=== PATIENT | male | born 1930 | race Caucasian/White ===

== ENCOUNTER 2020-01-20 16:03 | Inpatient (IN) | payer OTHER ==
[~2020-01-20] VITALS: Ht 180.3 cm; Wt 66.2 kg
--- NOTE | 2020-01-20 16:03 | NUR ---
SOPHIE RA 39 FROM A [facility]ARE [facility] FOR LOW BP, PT TO BED 5, ENHANCED ISOLATION PRECAUTIONS OBSERVED, PLACED ON MONITOR, AWAITING MD MCKENZIE
--- NOTE | 2020-01-20 16:12 | NUR ---
CALLED [facility] FOR INFORMATION ON PATIENT. THEY WILL FAX OVER INFO.
[2020-01-20] MEDS ORDERED: ONDANSETRON HCL/PF 4 MG/2 ML VIAL IVP ONE (16:30)
[2020-01-20] MEDS ORDERED: IV NS 0.9% 1,000 ML BAG IV ONE ×3 (16:30→18:30)
[2020-01-20] MEDS ORDERED: ONDANSETRON HCL/PF 4 MG/2 ML VIAL ONE (16:45)
[2020-01-20] MEDS ORDERED: TAMS-12 PO (16:47)
[2020-01-20] MEDS ORDERED: SODI1TAB66 PO (16:47)
[2020-01-20] MEDS ORDERED: ATOR40TA PO (16:47)
[2020-01-20] MEDS ORDERED: SENN-261 PO (16:47)
[2020-01-20] MEDS ORDERED: BISO5TAB20 PO (16:47)
[2020-01-20] MEDS ORDERED: FAMO20TA8 PO (16:47)
[2020-01-20] MEDS ORDERED: LISI2.5T2 PO (16:47)
[2020-01-20 16:54] LABS: BASOPHILS % (AUTO) 0.1 % (0.0-2.0); HEMATOCRIT 48 % (39-51); HEMOGLOBIN 14.7 g/dL (13.5-17.5); LYMPHOCYTES # (AUTO) 0.6 /CMM (0.8-4.8); LYMPHOCYTES % (AUTO) 1.3 % (20.0-44.0); MEAN CORPUSCULAR HGB CONC 31 g/dl (31.0-36.0); MEAN CORPUSCULAR VOLUME 104 fL (80-96); MONOCYTES # (AUTO) 2.5 /CMM (0.1-1.30); MONOCYTES % (AUTO) 5.8 % (2.0-12.0); NEUTROPHILS # (AUTO) 40.1 /CMM (1.8-8.9); NEUTROPHILS % (AUTO) 92.8 % (43.0-81.0); PLATELET COUNT (AUTO) 221 /CMM (150-450); RED BLOOD CELL COUNT(AUTO) 4.59 MIL/uL (4.5-6.0)
[2020-01-20] MEDS ORDERED: DEXTROSE 50%-WATER 50 ML DISP.SYRIN ONE (16:54)
[2020-01-20] MEDS ORDERED: ALBUMIN 25% 50 ML IV ONE (16:54)
[2020-01-20] MEDS ORDERED: DEXTROSE 50%-WATER 50 ML DISP.SYRIN IV ONE (17:00)
[2020-01-20] MEDS ORDERED: ALBUMIN 25% 12.5 GM/50 ML BOTTLE IV ONE (17:00)
--- NOTE | 2020-01-20 17:00 | NUR ---
COVID SWAB + FLU SWAB SENT
[2020-01-20 17:12] LABS: APPEARANCE,URINE TURBID (CLEAR); CALCIUM, SERUM 9.6 mg/dL (8.5-10.1); CARBON DIOXIDE 15 mmol/L (21-32); CHLORIDE 106 mmol/L (98-107); COLOR,URINE YELLOW (YELLOW); CREATININE 2.9 mg/dL (0.6-1.3); GLUCOSE 85 mg/dL (74-106); PH,URINE 7.5 (5.0-8.0); POTASSIUM 4.4 mmol/L (3.5-5.1); PROTEIN,URINE 3+ mg/dl (NEGATIVE); SODIUM SERUM 143 mmol/L (136-145); UGLUCOSE NEGATIVE (NEGATIVE); UREA NITROGEN, BLOOD 27 mg/dL (7-18)
[2020-01-20 17:13] LABS: BILIRUBIN,URINE SMALL (NEGATIVE); BLOOD, URINE 3+ Ery/uL (NEGATIVE); KETONES,URINE TRACE (NEGATIVE); LEUKOCYTE ESTERASE ,URINE 3+ (NEGATIVE); NITRITE, URINE NEGATIVE (NEGATIVE); UROBILINOGEN,URINE 0.2 EU/dL (0.2)
[2020-01-20 17:16] LABS: WHITE BLOOD COUNT (AUTO) 43.2 K/uL (4.3-11.0)
[2020-01-20 17:23] LABS: ALANINE AMINOTRANSFERASE 56 U/L (12-78); ALBUMIN 2.7 g/dL (3.4-5.0); ALKALINE PHOSPHATASE 110 U/L (46-116); ASPARTATE AMINOTRANSFERASE 165 U/L (15-37); BILIRUBIN,TOTAL 0.6 mg/dL (0.2-1.0); TOTAL PROTEIN, SERUM 6.7 g/dL (6.4-8.2)
[2020-01-20 17:28] LABS: WBC,URINE 51-80 /HPF (0-3)
[2020-01-20 17:29] LABS: BACTERIA,URINE Many /HPF (None Seen); SQUAMOUS EPITHELIAL CELL,UR Rare /HPF (None Seen)
[2020-01-20] MEDS ORDERED: MEROPENEM 1 G in IV NS 0.9% 100 ML IV ONE (17:30)
[2020-01-20] MEDS ORDERED: AZITHROMYCIN 500 MG in IV D5W 250 ML IV ONE (18:00)
[2020-01-20 18:02] LABS: ABG OXYGEN SATURATION 97.8 % (92.0-98.5); ABG PCO2 22.1 mmHg (35.0-45.0); ABG PH 7.316 (7.350-7.450); ABG PO2 130.7 mmHg (75.0-100.0); AaDO2 200.9 mmHg; COHb 0.5 % (0.5-1.5); MetHb 0.4 % (0.0-1.5); O2Hb 96.9 % (94.0-97.0); SITE, ABG Right Radial; VENT MODE, BG SM 6L
--- NOTE | 2020-01-20 18:14 | NUR ---
PAGED [facility].
--- NOTE | 2020-01-20 18:19 | NUR ---
Rolando cavazos in [facility] - 01/20/20 at 1819 by KINGSLEY JANA ELMORE
--- NOTE | 2020-01-20 18:29 | NUR ---
CALLED NURSING SUP FOR ICU BED.
[2020-01-20 18:31] LABS: BAND % (MANUAL) 11 % (0.0-5.0); LYMPHOCYTES % (MANUAL) 5 % (16-48); MONOCYTES % (MANUAL) 4 % (0-11.0); NEUTROPHILS % (MANUAL) 80 (42-76)
[2020-01-20] MEDS ORDERED: HYDROCODONE/APAP 5/325MG 1 EACH TABLET PO PRN (19:00)
[2020-01-20] MEDS ORDERED: ONDANSETRON HCL/PF 4 MG/2 ML VIAL IVP PRN (19:00)
[2020-01-20] MEDS ORDERED: NOREPINEPHRINE 8 MG in IV NS 0.9% 250 ML IV ONE (19:00)
[2020-01-20] MEDS ORDERED: Z GUARD REMEDY 2 OZ OINT TP PRN (19:00)
[2020-01-20] MEDS ORDERED: MAG HYDROX/AL HYDROX/SIMETH 30 ML UDC PO PRN (19:00)
[2020-01-20] MEDS ORDERED: ACETAMINOPHEN 325 MG TABLET PO PRN (19:00)
[2020-01-20] MEDS ORDERED: MAGNESIUM HYDROXIDE 30 ML UDC PO PRN (19:00)
--- NOTE | 2020-01-20 19:44 | NUR ---
ICU 257
--- NOTE | 2020-01-20 19:55 | NUR ---
report given to ashley hurley for yaw pt will be transported to icu
[2020-01-20 20:05] VITALS: BP 112/69
--- NOTE | 2020-01-20 20:05 | NUR ---
vocational horticulture instructor notes Admitted a 89 y/o male non verbal unable to make needs known ,a/oxo admitting diagnosis of sepsis uti . pts is r/o covid 19 wbc of 43.2lactic acid of 11.8 down to 6.7 , procal 188.60 trop -0.206 .pt on sr 87 ,0n 6 liters of o2 via mask .pts is mouth breather ,no sob no distress noted , received pts with levo drip at 0.5mcg/kg/min.with ivf of ns at 100cc/hr infusing well .counter supervisor made aware of piccline insertion ,f/c intact and patent draining with yellow cloudy /sidement urine, pts is npo status as ordered , admission routine care rendered mai needs attended too call light within reach kept pts clean dry and comfortable.v/s stable temp 95.5 ,pts received on [place] for hypothermia ,will continue to monitor pts .
--- NOTE | 2020-01-20 20:17 | NUR ---
PT TRANSPORTED TO ICU
[2020-01-20] MEDS: IV NS 0.9% 1,000 ML IV PRN (20:25)
[2020-01-20 21:00] VITALS: BP 100/68
[2020-01-20 22:00] VITALS: BP 101/61
[2020-01-20] MEDS ORDERED: NOREPINEPHRINE 4 MG/4 ML AMPUL IV ONE (22:26)
[2020-01-20 23:00] VITALS: BP 126/60
[2020-01-20] MEDS: NOREPINEPHRINE 8 MG in IV NS 0.9% 242 ML IV PRN (23:04)
[2020-01-21] VITALS (74 sets, daily range): BP systolic 63–149; BP diastolic 33–76
[2020-01-21] MEDS: ACETAMINOPHEN 650 MG/SUPP.RECT RC PRN (02:55)
[2020-01-21] MEDS ORDERED: NOREPINEPHRINE 4 MG/4 ML AMPUL IV ONE (02:56)
[2020-01-21] MEDS: NOREPINEPHRINE 8 MG in IV NS 0.9% 242 ML IV PRN ×3 (03:17→13:06)
[2020-01-21 05:09] LABS: BASOPHILS % (AUTO) 0.1 % (0.0-2.0); HEMATOCRIT 43 % (39-51); HEMOGLOBIN 14.3 g/dL (13.5-17.5); LYMPHOCYTES # (AUTO) 0.3 /CMM (0.8-4.8); LYMPHOCYTES % (AUTO) 0.8 % (20.0-44.0); MEAN CORPUSCULAR HGB CONC 33 g/dl (31.0-36.0); MEAN CORPUSCULAR VOLUME 98 fL (80-96); MONOCYTES # (AUTO) 1.5 /CMM (0.1-1.30); MONOCYTES % (AUTO) 4.6 % (2.0-12.0); NEUTROPHILS # (AUTO) 30.7 /CMM (1.8-8.9); NEUTROPHILS % (AUTO) 94.5 % (43.0-81.0); PLATELET COUNT (AUTO) 261 /CMM (150-450); RED BLOOD CELL COUNT(AUTO) 4.43 MIL/uL (4.5-6.0)
[2020-01-21 05:20] LABS: WHITE BLOOD COUNT (AUTO) 32.5 K/uL (4.3-11.0)
[2020-01-21 05:42] LABS: CALCIUM, SERUM 8.2 mg/dL (8.5-10.1); CARBON DIOXIDE 20 mmol/L (21-32); CHLORIDE 111 mmol/L (98-107); CREATININE 3.1 mg/dL (0.6-1.3); GLUCOSE 87 mg/dL (74-106); MAGNESIUM 1.5 mg/dL (1.8-2.4); PHOSPHORUS 3.9 mg/dL (2.5-4.9); POTASSIUM 3.9 mmol/L (3.5-5.1); SODIUM SERUM 145 mmol/L (136-145); UREA NITROGEN, BLOOD 34 mg/dL (7-18)
[2020-01-21 05:43] LABS: BAND % (MANUAL) 20 % (0.0-5.0); LYMPHOCYTES % (MANUAL) 2 % (16-48); MONOCYTES % (MANUAL) 8 % (0-11.0); NEUTROPHILS % (MANUAL) 70 (42-76)
[2020-01-21] MEDS: MEROPENEM 500 MG in IV NS 0.9% 50 ML IV SCH ×2 (05:46→17:16)
[2020-01-21] MEDS: IV NS 0.9% 1,000 ML IV PRN ×2 (05:55→17:37)
--- NOTE | 2020-01-21 06:36 | NUR ---
GOAT FARMER NOTES pts remains on levo drip at 0.5 mcg /kg/min ORDERED .NO SOB NO DISTRESS NOTED .NPO STATUS ALL DUE MEDS GIVEN ORDERED , IVF NS AT 100CCHR INFUSING WELL .WILL ENDORSE TO RN GHISLAINE DECKER FOR CONTINUITY OF CARE. .LATEST TEMP IS 99.6 ,WBC TRENDING DOWN TO 32.5 MD MADE AWARE WILL CONTINUE TO MONITOR PTS.
--- NOTE | 2020-01-21 07:00 | NUR ---
RN NOTES RECEIVED PT ON BED, ALERT/ DOES NOT FOLLOW COMMAND, RESTLESS AT TIMES , PULLING ON LEONARD. WRIST SOFT RESTRAINS , ON TELE SR HR IN 70'S , MONTANO DRINING TO GRAVITY WITH YELLOW CLOUDY URINE, PT IS NPO AT THIS TIME, R FA AND L AC AND L FOREARM IV SITES CLEAN, DRY AND INTACT, NS AT 100CC/HR AND LEVO AT 0.5MCG/KG/MIN RUNNING AT THIS TIME, SR UP x3, CALL LIGHT WITHIN EASY REACH, BED LOCKED AND IN LOWEST POSITION, CONTINUE TO MONITOR .
[2020-01-21] MEDS: HYDROCORTISONE SOD SUCCINATE 100 MG/2 ML VIAL IV SCH ×3 (08:37→16:48)
[2020-01-21] MEDS: Magnesium 1GM/D5W 100ML PREMIX 100 ML IV SCH ×2 (08:37→09:58)
--- NOTE | 2020-01-21 09:00 | NUR ---
RN NOTES NGT INSERTED PER MD ORDER, PLACEMENT VERIFIED BY TWO RN'S , NGT CONNECTED TO LIS , 550 CC DARK GREENISH GASTRIC DRAINING DRAINED . CONTINUE TO MONITOR.
[2020-01-21 09:48] LABS: THYROID STIMULATING HORMONE 4.503 uIU/mL (0.358-3.74)
--- NOTE | 2020-01-21 10:00 | NUR ---
RN NOTES DR SCHWARZ AND ELVIA NOTIFED REGARDING TROPONIN 0.402, NO NEW ORDER RECEIVED , CONTINUE TO MONITOR .
[2020-01-21 11:43] LABS: ABG BASE EXCESS -7.3 mmol/L; ABG OXYGEN SATURATION 98.1 % (92.0-98.5); ABG PH 7.419 (7.350-7.450); ABG PO2 118.5 mmHg (75.0-100.0); COHb 0.5 % (0.5-1.5); MetHb 0.3 % (0.0-1.5); O2Hb 97.3 % (94.0-97.0); SITE, ABG Right Radial; VENT MODE, BG SIMPLE MASK
--- NOTE | 2020-01-21 12:00 | NUR ---
RN NOTES PER AVTAR WARNER , BOARDING CARE WASHING MACHINE OPERATOR , PT HAS NO FAMILY MEMBERS. DR GAN NOTIFED ,EMERGENCY PICC LINE PLACEMENT CONSENT ORDER RECEIVED FORM DR GAN.
[2020-01-21] MEDS ORDERED: NOREPINEPHRINE 32 MG in IV NS 0.9% 218 ML IV PRN (13:30)
--- NOTE | 2020-01-21 14:00 | NUR ---
RN NOTES R UPPER ARM PICC LINE INSERTED BY PICC LINE NURSE .
[2020-01-21] MEDS ORDERED: AZITHROMYCIN 500 MG in IV D5W 250 ML IV SCH (18:00)
[2020-01-21] MEDS ORDERED: ZITHROMAX 500 MG/250 ML D5W IV SCH ×2 (18:00)
--- NOTE | 2020-01-21 18:00 | NUR ---
RN NOTES LEVO AT .1 MCG/KG/MIN RUNNING VIA R UPPER ARM PICC LINE , SMALL AMOUNT OF BLOODY DRAINING NOTED AT THE PICC LINE SITE , NEW DRESSING APPLIED , PT STILL ON 6 L O2 FACE MASK , O2 SAT WNL , NGT TO LIS , NO DISTRESS NOTED, SR UP x3, CALL LIGHT WITHIN EASY REACH, BED LOCKED AND IN LOWEST POSITION , WILL ENDORSE TO FIELD COLLECTOR NURSE FOR CONTINUITY OF CARE .
--- NOTE | 2020-01-21 20:00 | NUR ---
Received patient awake non verbal non interactive.Respiration even and unlabored.With O2 6L simple mask.SR per monitor with Levophed gtt 0.1 mcg/kg/min infusing via DRAKE PICC Line.Site intact.Will titrate accordingly.NPO status.NGT to LIWS.Patent and draining greenish output. FC to gravity.Turned and repositioned offloading pressure points.No distress noted.Continue monitoring.
[2020-01-22] VITALS (72 sets, daily range): BP systolic 98–130; BP diastolic 47–75
[2020-01-22 04:25] LABS: EOSINOPHILS % (AUTO) 0.4 % (0.0-6.0); HEMATOCRIT 39 % (39-51); HEMOGLOBIN 12.6 g/dL (13.5-17.5); LYMPHOCYTES # (AUTO) 0.3 /CMM (0.8-4.8); LYMPHOCYTES % (AUTO) 1.3 % (20.0-44.0); MEAN CORPUSCULAR HGB CONC 33 g/dl (31.0-36.0); MEAN CORPUSCULAR VOLUME 97 fL (80-96); MONOCYTES # (AUTO) 0.8 /CMM (0.1-1.30); MONOCYTES % (AUTO) 3.9 % (2.0-12.0); NEUTROPHILS # (AUTO) 20.1 /CMM (1.8-8.9); NEUTROPHILS % (AUTO) 94.4 % (43.0-81.0); PLATELET COUNT (AUTO) 194 /CMM (150-450); RED BLOOD CELL COUNT(AUTO) 3.97 MIL/uL (4.5-6.0); WHITE BLOOD COUNT (AUTO) 21.3 K/uL (4.3-11.0)
[2020-01-22] MEDS: IV NS 0.9% 1,000 ML IV PRN ×2 (04:40→15:03)
[2020-01-22 04:45] LABS: ALANINE AMINOTRANSFERASE 103 U/L (12-78); ALBUMIN 1.9 g/dL (3.4-5.0); ALKALINE PHOSPHATASE 74 U/L (46-116); ASPARTATE AMINOTRANSFERASE 174 U/L (15-37); BILIRUBIN,TOTAL 0.3 mg/dL (0.2-1.0); CALCIUM, SERUM 7.7 mg/dL (8.5-10.1); CARBON DIOXIDE 20 mmol/L (21-32); CHLORIDE 112 mmol/L (98-107); CREATININE 3.1 mg/dL (0.6-1.3); GLUCOSE 115 mg/dL (74-106); MAGNESIUM 2.3 mg/dL (1.8-2.4); PHOSPHORUS 4.9 mg/dL (2.5-4.9); POTASSIUM 4.1 mmol/L (3.5-5.1); SODIUM SERUM 146 mmol/L (136-145); TOTAL PROTEIN, SERUM 5.2 g/dL (6.4-8.2); UREA NITROGEN, BLOOD 49 mg/dL (7-18)
[2020-01-22] MEDS: MEROPENEM 500 MG in IV NS 0.9% 50 ML IV SCH ×2 (05:12→18:07)
--- NOTE | 2020-01-22 06:00 | NUR ---
Patient resting no significant change noted during the shift.VSS.SR.Still on Levophed gtt infusing at 0.1 mcg and IV NS.Tolerating 6L simple mask sat 99%-100%.AM care done.No BM noted.NGT to LWIS. Turned and repositioned.No distress noted.
--- NOTE | 2020-01-22 07:30 | NUR ---
TUMBLE TAILSTOCK TURRET LATHE OPERATOR INITIAL NOTE RECEIVED PATIENT AWAKE, NON-VERBAL, RESPONDS TO NAME. NO S/S OF PAIN OR DISCOMFORT. NO DISTRESS NOTED. ON 6LPM O2 VIA MASK. ON TELE MONITOR SR. WITH LEFT NARE NGT PATENT, INTACT, IN PLACE ON LIS WITH BROWN OUTPUT. F/C PATENT AND DRAINING BY GRAVITY. WITH DRAKE PICC LINE PATENT AND INTACT, LEVO AT 0.1 MG/KG/MIN AND NS AT 100 ML/HR. BILATERAL SOFT RESTRAINTS IN PLACE, CIRCULATION CHECKED. HOB ELEVATED. TURNED AND REPOSITIONED. SIDE RAILS UP AND LOCKED. BED KEPT AT LOWEST POSITION. CALL LIGHT KEPT WITHIN EASY REACH. WILL CONTINUE TO MONITOR.
[2020-01-22 08:16] LABS: ABG BASE EXCESS -4.5 mmol/L; ABG OXYGEN SATURATION 96.7 % (92.0-98.5); ABG PCO2 30.8 mmHg (35.0-45.0); ABG PH 7.409 (7.350-7.450); AaDO2 228.9 mmHg; COHb 0.4 % (0.5-1.5); MetHb 0.4 % (0.0-1.5); O2Hb 95.9 % (94.0-97.0); SITE, ABG Right Radial
[2020-01-22] MEDS: HYDROCORTISONE SOD SUCCINATE 100 MG/2 ML VIAL IV SCH (08:28)
--- NOTE | 2020-01-22 09:00 | NUR ---
CONSULTING TECHNICAL MANAGER NOTE FOLLOWED UP WITH [employer] REGARDING POLST, PER [employer] DRIER TRANSFER CAR OPERATOR CALL IN AM WHEN MEDICAL RECORDS OPEN
--- NOTE | 2020-01-22 18:43 | NUR ---
EMERGENCY ROOM TECHNICIAN CLOSING NOTE ALL DUE MEDS GIVEN. NO DISTRESS NOTED. ON RA AT 98% SPO2. ON TELE MONITOR SR. SKIN WARM AND DRY TO TOUCH. KEPT CLEAN AND DRY. TURNED AND REPOSITIONED Q2 AND PRN. LEVO OFF SINCE 729, NS AT 100ML/HR RUNNING. LEFT NGT PATENT, INTACT AND IN PLACE ON LIS. F/C DRAINING BY GRAVITY. HOB ELVATED. SIDE RAILS UP AND LOCKED. BED KEPT AT LOWEST POSITION. WILL ENDORSE CONTINUITY OF CARE TO PM NURSE.
[2020-01-23] VITALS (42 sets, daily range): BP systolic 111–134; BP diastolic 49–75
[2020-01-23] MEDS: IV NS 0.9% 1,000 ML IV PRN (01:19)
[2020-01-23] MEDS: ACETAMINOPHEN 650 MG/SUPP.RECT RC PRN (01:30)
[2020-01-23] MEDS: MEROPENEM 500 MG in IV NS 0.9% 50 ML IV SCH ×2 (05:46→18:54)
--- NOTE | 2020-01-23 07:30 | NUR ---
TUNNEL ELASTIC OPERATOR ZIGZAG INITIAL NOTE RECEIVED PATIENT AWAKE, NON-VERBAL, RESPONDS TO NAME. NO S/S OF PAIN OR DISCOMFORT. NO DISTRESS NOTED. ON 3LPM O2 VIA NC. ON TELE MONITOR SR. WITH LEFT NARE NGT PATENT, INTACT, IN PLACE ON LIS WITH BROWN OUTPUT. F/C PATENT AND DRAINING BY GRAVITY. WITH DRAKE PICC LINE PATENT AND INTACT AND NS AT 100 ML/HR. HOB ELEVATED. TURNED AND REPOSITIONED. SIDE RAILS UP AND LOCKED. BED KEPT AT LOWEST POSITION. CALL LIGHT KEPT WITHIN EASY REACH. WILL CONTINUE TO MONITOR.
[2020-01-23 08:39] LABS: BASOPHILS # (AUTO) 0.1 /CMM (0.0-0.2); BASOPHILS % (AUTO) 0.3 % (0.0-2.0); HEMATOCRIT 41 % (39-51); HEMOGLOBIN 13.2 g/dL (13.5-17.5); LYMPHOCYTES # (AUTO) 0.4 /CMM (0.8-4.8); LYMPHOCYTES % (AUTO) 2.1 % (20.0-44.0); MEAN CORPUSCULAR HGB CONC 32 g/dl (31.0-36.0); MEAN CORPUSCULAR VOLUME 98 fL (80-96); MONOCYTES # (AUTO) 0.7 /CMM (0.1-1.30); NEUTROPHILS # (AUTO) 15.5 /CMM (1.8-8.9); NEUTROPHILS % (AUTO) 93.6 % (43.0-81.0); PLATELET COUNT (AUTO) 154 /CMM (150-450); RED BLOOD CELL COUNT(AUTO) 4.17 MIL/uL (4.5-6.0); WHITE BLOOD COUNT (AUTO) 16.6 K/uL (4.3-11.0)
[2020-01-23 08:42] LABS: CALCIUM, SERUM 7.7 mg/dL (8.5-10.1); CARBON DIOXIDE 21 mmol/L (21-32); CHLORIDE 118 mmol/L (98-107); CREATININE 2.2 mg/dL (0.6-1.3); GLUCOSE 85 mg/dL (74-106); POTASSIUM 3.7 mmol/L (3.5-5.1); SODIUM SERUM 152 mmol/L (136-145); UREA NITROGEN, BLOOD 56 mg/dL (7-18)
--- NOTE | 2020-01-23 09:00 | NUR ---
WOUND CARE CONSULT: PT PRESENTS WITH RASH TO PENIS, PERINEUM AND SCROTAL AREAS AND BLANCHABLE REDNESS NOTED TO SACRAL AREA, PRESENT ON ADMISSION. PT IS INCONTINENT OF STOOL. RECOMMENDATIONS MADE FOR SKIN PROTECTION. DISCUSSED WITH NURSING STAFF. FIRST STEP LOW AIRLOSS MATTRESS ON ORDER. CURRENT SADIA SCORE IS 12. WILL SEE PRN. TREVIZO IN AGREEMENT WITH PLAN OF CARE. Addendum: 01/23/20 at 0902 by KI CEJA WNDNU Amended: Links added.
[2020-01-23] MEDS: HEPARIN SODIUM, PORCINE 5000 UNITS/1 ML VIAL SQ SCH ×2 (09:20→21:36)
[2020-01-23] MEDS ORDERED: IV D5/0.45 NACL 1,000 ML IV ONE (09:30)
[2020-01-23 09:42] LABS: BAND % (MANUAL) 6 % (0.0-5.0); LYMPHOCYTES % (MANUAL) 3 % (16-48); MONOCYTES % (MANUAL) 7 % (0-11.0); NEUTROPHILS % (MANUAL) 84 (42-76)
[2020-01-23] MEDS: CLOTRIMAZOLE 1% 15 GM TUBE TP SCH ×2 (09:50→18:54)
[2020-01-23] MEDS ORDERED: IV D5/0.45 NACL 1,000 ML IV PRN (10:00)
[2020-01-23 15:31] LABS: BILIRUBIN,URINE NEGATIVE (NEGATIVE); BLOOD, URINE LARGE Ery/uL (NEGATIVE); COLOR,URINE YELLOW (YELLOW); KETONES,URINE NEGATIVE (NEGATIVE); LEUKOCYTE ESTERASE ,URINE SMALL (NEGATIVE); NITRITE, URINE NEGATIVE (NEGATIVE); PH,URINE 5.5 (5.0-8.0); PROTEIN,URINE 30 mg/dl (NEGATIVE); UGLUCOSE NEGATIVE (NEGATIVE); UROBILINOGEN,URINE 0.2 EU/dL (0.2)
[2020-01-23 15:55] LABS: APPEARANCE,URINE SLIGHTLY HAZY (CLEAR)
--- NOTE | 2020-01-23 16:32 | NUR ---
viticulturist note very minimal output noted on ngt lis, informed dr oakley with orders to dc lis
[2020-01-23 16:39] LABS: RBC,URINE 51-80 /HPF (0-2); WBC,URINE 21-50 /HPF (0-3)
[2020-01-23 16:40] LABS: BACTERIA,URINE 3+ /HPF (None Seen); SQUAMOUS EPITHELIAL CELL,UR 0-2 /HPF (None Seen)
[2020-01-23 16:41] LABS: COARSE GRANULAR CASTS,URINE Rare /LPF (None Seen); EOSINOPHIL,URINE None Seen
[2020-01-23 17:44] LABS: URINE SODIUM, RANDOM 44 mmol/l (40-220); URINE TOTAL PROTEIN 2.3 mg/dL (0-11.9)
[2020-01-23 17:46] LABS: CREATININE, URINE < 13.0 MG/DL (30.0-125.0)
--- NOTE | 2020-01-23 18:29 | NUR ---
ASSISTANT MANAGER QUALITY MANAGEMENT NOTE RECEIVED CALL FROM [employer] AUTO REFINISHER WITH ROOM NUMBER, PATIENT TO BE TRANSFERRED TO [facility] ROOM [id number] WITH [facility] WOMEN AT 9PM. REPORT GIVEN TO PHILLY PERLA.
--- NOTE | 2020-01-23 19:59 | NUR ---
RUG INSPECTOR HELPER OPENING NOTE, RECEIVED PATIENT SLEEPING, NON-VERBAL, RESPONDS TO NAME. ON 3LPM O2 VIA NS. NO SOB, NO S/S OF PAIN AND NO ACUTE DISTRESS NOTED AT THIS TIME. ON TELE MONITOR SR. WITH LEFT NARE NGT PATENT, INTACT, IN PLACE ON LIS WITH BROWN OUTPUT. MONTANO CATH DRAINING TO THE GRAVITY. WITH DRAKE PICC LINE PATENT AND INTACT AND NS AT 100 ML/HR. NO S/S OF INFILTRATION NOTED. HOB ELEVATED. SIDE RAILS UP X2. BED LOCKED/LOW POSITION. CALL LIGHT WITHIN EASY REACH. WILL CONTINUE TO MONITOR.
--- NOTE | 2020-01-23 21:40 | NUR ---
PATIENT WAS GIVEN BED BATH AND KEPT CLEAN AND DRY, PATIENT WAS PICKED UP BY [facility] TO BE TRANSFERRED TO [facility]. NO SOB AND ACUTE DISTRESS AT THIS TIME. PATIENT LEFT AT 2140.
== END 2020-01-23 21:41 | disposition short-term general hospital (02) | DRG 871 ==
LOC: ER 16:04 → ICU 20:02
PROVIDERS: ADMIT Internal Medicine; ATTEND Internal Medicine
PROC: B548ZZA Ultrasonography of Superior Vena Cava, Guidance (ICD-10-PCS; principal; 2020-01-21)
PROC: 02HV33Z Insertion of Infusion Device into Superior Vena Cava, Percutaneous Approach (ICD-10-PCS; principal; 2020-01-21)
DX: A41.9 Sepsis, unspecified organism (principal); R65.21 Severe sepsis with septic shock; G93.41 Metabolic encephalopathy; N17.0 Acute kidney failure with tubular necrosis; K72.00 Acute and subacute hepatic failure without coma; I21.A1 Myocardial infarction type 2; J69.0 Pneumonitis due to inhalation of food and vomit; N39.0 Urinary tract infection, site not specified; E87.2 Acidosis; E87.0 Hyperosmolality and hypernatremia; J98.11 Atelectasis; E22.2 Syndrome of inappropriate secretion of antidiuretic hormone; K56.7 Ileus, unspecified; F03.90 Unspecified dementia, unspecified severity, without behavioral disturbance, psychotic disturbance, mood disturbance, and anxiety; E78.5 Hyperlipidemia, unspecified; K21.9 Gastro-esophageal reflux disease without esophagitis; N18.9 Chronic kidney disease, unspecified; R74.0 Nonspecific elevation of levels of transaminase and lactic acid dehydrogenase [LDH]; N40.1 Benign prostatic hyperplasia with lower urinary tract symptoms; I12.9 Hypertensive chronic kidney disease with stage 1 through stage 4 chronic kidney disease, or unspecified chronic kidney disease; N28.89 Other specified disorders of kidney and ureter; K31.84 Gastroparesis; B96.5 Pseudomonas (aeruginosa) (mallei) (pseudomallei) as the cause of diseases classified elsewhere; B95.2 Enterococcus as the cause of diseases classified elsewhere
CPT/HCPCS: 36415; 36569; 36600; 71045-TC; 74018; 80048-TC; 80053-TC; 80076-TC; 81000-TC; 82533; 82570-TC; 82803-TC; 82962-TC; 83605-TC; 83735-TC; 84100-TC; 84155-TC; 84300-TC; 84439-TC; 84443-TC; 84484-TC; 85025-TC; 85730-TC; 87040-TC; 87081-TC; 87086-TC; 87186-TC; 93307-TC; A4216; A6403; C1751; G0378; J0456; J1644; J1720; J2185; J2405; J3475; J3490; J7030; J7050; J7060; P9047